=== PATIENT | female | born 2000 | race Caucasian/White ===

== ENCOUNTER 2019-11-10 16:22 | Emergency (ER) | payer MEDICAID, SELFPAY ==
[2019-11-10 16:46] VITALS: BP 124/64; PULSE 111; RESP 24; TEMP 37.6; O2SAT 100
--- NOTE | 2019-11-10 16:52 | ED.FEMALEGU ---
HPI - Female Genitourinary General Chief complaint: Urogenital-Female Stated complaint: herpes flare up Time Seen by Provider: 11/10/19 16:45 Source: patient and RN notes reviewed Mode of arrival: ambulatory Limitations: no limitations History of Present Illness HPI Narrative: 19-year-old female presents with concern for dysuria. Reports she is afraid she has a genital herpes outbreak. Reports she contracted genital herpes approximately 2 years ago, and has had 1 outbreak since then. Reports it was last year. Denies any recent history of unprotected sex, any concern for current STDs. Reports she has not seen any lesions, however she has burning with urination. She reports suprapubic tenderness, frequency, urgency. She denies fever, malaise, back pain. MD elicited complaint: dysuria Related Data Allergies Allergy/AdvReac Type Severity Reaction Status Date / Time tramadol AdvReac Severe Other Verified 11/10/19 16:38 Review of Systems Review of Systems: Narrative: CONSTITUTIONAL: Denies malaise, chills, sweats, or fever. CARDIOVASCULAR: Denies chest pain, palpitations RESPIRATORY: Denies dyspnea. GASTROINTESTINAL: Reports suprapubic pain, denies abdominal pain, nausea, vomiting, diarrhea, bloody, or mucous stools. GENITOURINARY: Reports dysuria frequency, urgency. Denies abnormal vaginal discharge, lesions, or hematuria. SKIN: Denies vaginal lesions, rash or itching. MUSCULOSKELETAL: Denies back pain or myalgia. All systems reviewed & are unremarkable except as noted in HPI and below PMFSH Comments At time of signature, agree with nursing past medical, surgical, social and family history. There is no relevant family history pertinent to the presenting complaint Exam Narrative: Exam Narrative: GENERAL: Well-appearing, well-nourished, and in no acute distress. HEAD: Normocephalic. EYES: PERRLA, conjunctivae clear. NECK: Supple. No lymphadenopathy CHEST: Clear to auscultation. No respiratory distress. HEART: Regular rate and rhythm. No murmur heard. Normal peripheral pulses. ABDOMEN: Soft, suprapubic tenderness, otherwise nontender upon palpation, nondistended, normal active bowel sounds, no palpable or pulsatile masses, no guarding. No CVA tenderness SKIN: Warm, dry, no rash. NEURO: Alert and oriented x3. PSYCH: Normal mood and affect : External Female Exam: normal external appearance and other (No lesions or other visual signs of genital herpes noted. No vaginal disch) Course Course Emergency Course: Patient is aware of diagnosis, understands and agrees to treatment plan. Anticipatory guidance given. Patient agrees to follow-up as directed and is aware of reasons to seek care at the emergency department. Portions of this record may have been created with voice recognition software Vital Signs Vital signs: Vital Signs Temperature 99.6 F 11/10/19 16:46 Pulse Rate 111 H 11/10/19 16:46 Respiratory Rate 24 H 11/10/19 16:46 Blood Pressure 124/64 11/10/19 16:46 Pulse Oximetry 100 11/10/19 16:46 Temperature 99.6 F 11/10/19 16:46 Pulse Rate 111 H 11/10/19 16:46 Respiratory Rate 24 H 11/10/19 16:46 Blood Pressure 124/64 11/10/19 16:46 Pulse Oximetry 100 11/10/19 16:46 Reviewed. MDM - Female Genitourinary MDM Narrative Medical decision making narrative: Exam findings and UA show no acute concerns or changes; patient is non-toxic appearing and is in no distress. Patient is appropriate for outpatient treatment and follow-up. Differential Diagnosis Differential diagnosis: Likely urinary tract infection, vaginitis and other (Genital herpes) Lab Data Labs: Urine Glucose Negative Reference Range: Negative Urine Bilirubin Negative Reference Range: Negative Urine Ketone Negative Reference Range: Negative Urine Specific [place] 1.030 Reference Range:1.001-1.035 Urine Blood
== END 2019-11-10 16:58 | disposition home or self-care (01) ==
PROVIDERS: Emergency Provider Nurse Practitioner
DX: N39.0 Urinary tract infection, site not specified (principal)
CPT/HCPCS: 81003; 87077; 87086; 87088; 87186; 99213; G0463